=== PATIENT | male | born 1940 | race Caucasian/White ===

== ENCOUNTER 2019-06-10 16:12 | Inpatient (IN) | payer OTHER, MEDICARE ==
[~2019-06-10] VITALS: Ht 157.5 cm; Wt 54.0 kg
[2019-06-10 16:21] VITALS: BP 157/101
--- NOTE | 2019-06-10 16:31 | NUR ---
PT ASSISTED AND TRANSFERRED VIA WHEELCHAIR TO BED, WITH FAMILY MEMBERS
--- NOTE | 2019-06-10 16:49 | NUR ---
PT REFERRED BY URGENT CARE. C/O BILATERAL ANKLE SWELLING X5 MONTHS. PTS FAMILY STATES ANKLES HAVE PROGRESSIVELY GOTTEN MORE SWOLLEN. DIFFICULTY CHANGING POSITIONS D/T UPPER BACK PAIN. 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 PTS FAMILY REPORTS APPETITE CHANGE FOR THE PAST MONTH. RESPIRATIONS EVEN AND UNLABORED. LUNG FERNANDES CLEAR UPON AUSCULTATION. DENIES COUGH. LAYING IN BED CALM AND PLEASANT W/ FAMILY MEMBERS AT BEDSIDE. MEDHX: HTN, HIGH CHOLESTEROL
--- NOTE | 2019-06-10 17:34 | NUR ---
XRAY AT BEDSIDE
[2019-06-10 18:02] LABS: BASOPHILS % (AUTO) 0.2 % (0.0-2.0); EOSINOPHILS # (AUTO) 0.2 K/uL (0-0.4); EOSINOPHILS % (AUTO) 3.6 % (0.0-4.0); HEMATOCRIT 38.5 % (36-52); HEMOGLOBIN 12.6 g/dL (12.0-18.0); LYMPHOCYTES # (AUTO) 0.5 K/uL (2.0-11.5); MEAN CORPUSCULAR HEMOGLOBIN 24 pg (27-31); MEAN CORPUSCULAR HGB CONC 33 g/dL (33-37); MEAN CORPUSCULAR VOLUME 74.7 fL (80-94); MONOCYTES # (AUTO) 0.5 K/uL (0.8-1.0); MONOCYTES % (AUTO) 7.8 % (1.7-9.3); NEUTROPHILS # (AUTO) 5.6 K/uL (1.8-7.7); NEUTROPHILS % (AUTO) 81.4 % (42.2-75.2); PLATELET COUNT (AUTO) 233 K/uL (140-450); RED BLOOD CELL COUNT(AUTO) 5.15 MIL/uL (4.20-6.10); RED CELL DISTRIBUTION WIDTH 16.2 % (11.6-13.7); WHITE BLOOD COUNT (AUTO) 6.9 K/uL (4.8-10.8)
[2019-06-10] MEDS ORDERED: LIDOCAINE MPF 1% 5mL VIAL INJ ONE (18:15)
[2019-06-10] MEDS ORDERED: fentaNYL 0.05 MG/ML VIAL IVP ONE (18:15)
[2019-06-10] MEDS ORDERED: MIDAZOLAM 2 MG/2 ML VIAL IVP ONE (18:15)
[2019-06-10 18:23] LABS: ANION GAP 10.6 (8-16); CHLORIDE 105 mmol/L (98-107); CREATININE 0.8 mg/dL (0.7-1.3); GLUCOSE 83 mg/dL (74-106); POTASSIUM 3.6 mmol/L (3.5-5.1); SODIUM SERUM 142 mmol/L (136-145); UREA NITROGEN, BLOOD 19 mg/dL (7-18)
[2019-06-10 18:29] LABS: ALBUMIN 3.5 g/dL (3.4-5.0); ASPARTATE AMINOTRANSFERASE 15 U/L (15-37); TOTAL BILIRUBIN 1.7 mg/dL (0.0-1.0)
[2019-06-10 18:38] LABS: PROTHROMBIN TIME 10.3 secs (10.8-13.4)
--- NOTE | 2019-06-10 18:46 | NUR ---
PT LAYING HIGH OSBORN'S, SPO2 97% ON 2L NC WITH ETCO2, RR 22 EVEN AND UNLABORED. DENIES PAIN AT THIS TIME. ALL NEEDS MET.
--- NOTE | 2019-06-10 19:10 | NUR ---
DR FERRER AT BEDSIDE FOR L CHEST INSERTION. AIR AND 350ML SEROSANGUIONOUS DRAINAGE SUCTIONED. SUCCESSFUL PROCEDURE WITHOUT COMPLICATIONS, PT TOLERATED WELL, VS STABLE THROUGHOUT PROCEDURE.
[2019-06-10] MEDS ORDERED: ACETAMINOPHEN 325 MG TAB PO PRN (19:25)
[2019-06-10] MEDS ORDERED: ALBUTEROL 0.083% 2.5 MG/3 ML NEBU INH PRN (19:25)
[2019-06-10] MEDS ORDERED: ONDANSETRON 4 MG/2 ML VIAL IVP PRN (19:25)
--- NOTE | 2019-06-10 19:55 | NUR ---
ADMITTED 78 YEARS OLD MALE FROM ER VIA [employer]), SPANISH SPEAKING ONLY. CC: BACK PAIN. DX: LEFT PNEUMOTHORAX. LEFT CHEST TUBE. ER MD AT BEDSIDE ADJUSTED. REINFORCED BY ER NURSE AT BEDSIDE. 500ML OUTPUT NOTED UPON ARRIVAL. 20MMHG CONTINUOUS SUCTION ATTACHED. FAMILY AT BEDSIDE. JOURNEYMAN PLUMBER AT BEDSIDE FOR SKIN ASSESSMENT. CALL LIGHT WITHIN REACH.
--- NOTE | 2019-06-10 20:04 | NUR ---
Patient will be admitted to care of DR DRAKE. Admited to TELE. Will go to room 124B Belongings list completed. Report to CASI CONTRERAS. FAMILY AT BEDSIDE AT THIS TIME
--- NOTE | 2019-06-10 20:15 | NUR ---
[facility] SWAB COLLECTED AND SENT. SEE NURSING ADMISSION ASSESSMENT AND HISTORY COMPLETED AND INFO GATHERED WITH FAMILY MEMBER AT BEDSIDE. CALL LIGHT WITHIN REACH.
[2019-06-10] MEDS ORDERED: PNEUMOCOCCAL VACCINE 23 MCG/0.5 ML VIAL IMVAC PRN (22:00)
[2019-06-10] MEDS: MORPHINE SULFATE 4 MG/ML SYR IVP PRN (23:06)
[2019-06-11] VITALS (7 sets, daily range): BP systolic 148–161; BP diastolic 86–96
--- NOTE | 2019-06-11 00:29 | NUR ---
REPOSITIONED TO LEFT SIDE LYING, CHEST TUBE PATENT AND INTACT. VITAL SIGNS STABLE. CALL LIGHT WITHIN REACH. SLEEPING WELL.
--- NOTE | 2019-06-11 04:40 | NUR ---
VITAL SIGNS STABLE. NO COMPLAINS. PERICARE DONE. REPOSITIONED WITH CLINICAL DATA MANAGER. CHEST PATENT AND INTACT, DRAINING WELL.
--- NOTE | 2019-06-11 05:30 | NUR ---
SPOKE WITH DR. HERNANDEZ REGARDING THE SIGNED INFORMED CONSENT FOR CT CHEST WITH IV CONTRAST, NEEDS MD TO SIGNED PRIOR TO DOING THE TEST. OKAY TO WAIT TILL TODAY WHEN MD MADE ROUNDS TO SIGN CONSENT. INFORMED [employer] ENFORCEMENT OFFICER AND RADIOLOGY DEPARTMENT. LEFT NOTE FRONT OF CHART TO SIGN.
--- NOTE | 2019-06-11 05:38 | NUR ---
SCD BLE APPLIED.
[2019-06-11 06:21] LABS: ANION GAP 12.1 (8-16); CARBON DIOXIDE 28.7 mmol/L (21-32); CHLORIDE 106 mmol/L (98-107); CREATININE 0.8 mg/dL (0.7-1.3); GLUCOSE 81 mg/dL (74-106); POTASSIUM 3.8 mmol/L (3.5-5.1); SODIUM SERUM 143 mmol/L (136-145); UREA NITROGEN, BLOOD 18 mg/dL (7-18)
[2019-06-11 06:52] LABS: MAGNESIUM 1.7 mg/dL (1.8-2.4); PHOSPHORUS 3.7 mg/dL (2.5-4.9)
[2019-06-11 06:54] LABS: BASOPHILS % (AUTO) 0.6 % (0.0-2.0); EOSINOPHILS # (AUTO) 0.4 K/uL (0-0.4); EOSINOPHILS % (AUTO) 4.7 % (0.0-4.0); HEMATOCRIT 38.7 % (36-52); HEMOGLOBIN 12.7 g/dL (12.0-18.0); LYMPHOCYTES # (AUTO) 0.8 K/uL (2.0-11.5); LYMPHOCYTES % (AUTO) 9.3 % (20.5-51.1); MEAN CORPUSCULAR HEMOGLOBIN 25 pg (27-31); MEAN CORPUSCULAR HGB CONC 33 g/dL (33-37); MEAN CORPUSCULAR VOLUME 74.7 fL (80-94); MONOCYTES # (AUTO) 0.8 K/uL (0.8-1.0); MONOCYTES % (AUTO) 9.7 % (1.7-9.3); NEUTROPHILS # (AUTO) 6.3 K/uL (1.8-7.7); NEUTROPHILS % (AUTO) 75.7 % (42.2-75.2); PLATELET COUNT (AUTO) 216 K/uL (140-450); RED BLOOD CELL COUNT(AUTO) 5.18 MIL/uL (4.20-6.10); RED CELL DISTRIBUTION WIDTH 16.3 % (11.6-13.7); WHITE BLOOD COUNT (AUTO) 8.3 K/uL (4.8-10.8)
--- NOTE | 2019-06-11 07:19 | NUR ---
ENDORSED CARE AT BEDSIDE WITH SHAR CONTRERAS, PATIENT IN STABLE CONDITION.
--- NOTE | 2019-06-11 07:20 | NUR ---
Received bedside report from pm nurse Palacios. Pt resting in bed, awake, verbally responsive. Chest tube in place to left axillary with 20mmHg suction. Serosanguineous drainage present in collection chamber. field technical support consultant at bedside to take pt for CT. Chest tube clamped with gauze & forceps. Pt left unit via hospital bed.
--- NOTE | 2019-06-11 08:00 | NUR ---
Pt back in room 124A from CT. Chest tube in place with continuous suction @ 20cm H20. Pt awake, respirations even & nonlabored on O2 @ 2Lpm via n/c, no signs of distress. Right AC IV saline lock intact & asymptomatic. HOB @ 30. Call light within reach.
--- NOTE | 2019-06-11 08:25 | NUR ---
Spoke to Jason (son) on the phone for med reconciliation. Per Jason, he is at work at the moment but will come be later today to bring his meds to the hospital.
--- NOTE | 2019-06-11 09:06 | NUR ---
PATIENT HAS BEEN SCREENED AND CATEGORIZED MODERATE NUTRITION RISK. PATIENT WILL BE SEEN WITHIN 3-5 DAYS OF ADMISSION. 06/13/19 06/15/[address]
[2019-06-11] MEDS: MORPHINE SULFATE 4 MG/ML SYR IVP PRN (10:56)
--- NOTE | 2019-06-11 11:25 | NUR ---
Lining Baster Note: I called patient's son Jason Johnson to obtain information about patient for assessment. He stated he is currently working and prefers I call him tomorrow. He told me I can call him any time tomorrow.
--- NOTE | 2019-06-11 11:45 | NUR ---
Pt's granddaughter at bedside visiting pt. Pt resting in bed, awake, verbally responsive in Vietnames, no signs of distress, respirations even & nonlabored on O2 @ 2Lpm via n/c. Chest tube intact with continuous suction at 20cm H2O, small amount serosanguineous drainage present in tubing. Per granddaughter, pt does not take any medications at home.
--- NOTE | 2019-06-11 15:15 | NUR ---
Spoke to Dr Dai on the phone & read back magnesium level 1.7. Received order for MagOx, noted & carried out.
[2019-06-11] MEDS ORDERED: MAGNESIUM OXIDE 400 MG TAB PO SCH (16:00)
--- NOTE | 2019-06-11 17:45 | NUR ---
Pt in semi-fowlers in bed, awake, verbally responsive in Maori. Pt respirations even & nonlabored on O2 @ 2Lpm via n/c, FLACC 0. Left mid-axillary chest tube insertion site with clean & dry occlusive dressing. CT with continuous suction @ 20cm H2O, draining min serosanguineous fluid. Right AC IV saline lock intact & asymptomatic; line patent & flushed with 10ml NS. Call light within reach.
--- NOTE | 2019-06-11 19:05 | NUR ---
Bedside report given to pm nurse Fitz. Pt resting in bed, no signs of distress, chest tube in place with continuous suction.
--- NOTE | 2019-06-11 19:10 | NUR ---
RECEIVED PT ON BED, AAOX4, SYRIAC SPEAKING ONLY, VITAL SIGNS TAKEN, BP SLIGHTLY ELEVATED, ASYMPTOMATIC, NO SIGNS OF PAIN, SAT-98% ON O2 2L NC, WITH LEFT CHEST TUBE TO CONTINUOUS SUCTION AT 20CM, POSITIVE BUBBLE ON THE CHEST TUBE CHAMBER, DIMINISHED LUNG SOUNDS, SAFETY MEASURES IN PLACE, SIDE RAILS UP X2 AND BED ALARM ON, CALL LIGHT WITHIN REACH.
--- NOTE | 2019-06-11 20:15 | NUR ---
PT INCONTINENT OF URINE, CLEANED AND REPOSITIONED, OFFLOAD PRESSURE AREAS, ALL NEEDS ANTICIPATED.
--- NOTE | 2019-06-11 22:10 | NUR ---
PT SEEN STANDING UP ON SIDE OF THE BED, PT CONFUSED, UNABLE TO FOLLOW COMMAND, PUT PT ON A BED WITH BED ALARM, FREQUENT ROUNDING MADE.
[2019-06-12] VITALS: BP 159/94
--- NOTE | 2019-06-12 | NUR ---
PT AWAKE, VITAL SIGNS TAKEN, BP SLIGHTLY ELEVATED, IN PAIN, MEDICATED WITH MORPHINE, LEFT CHEST TUBE DRESSING DRY AND INTACT, CONTINUE TO MONITOR CLOSELY.
[2019-06-12 04:00] VITALS: BP 159/91
--- NOTE | 2019-06-12 04:00 | NUR ---
PT SLEEPING, EASILY AROUSABLE, VITAL SIGNS TAKEN, BP SLIGHTLY ELEVATED, ASYMPTOMATIC, NO SIGNS OF PAIN OR SOB, MONITORED CLOSELY.
--- NOTE | 2019-06-12 05:30 | NUR ---
30ML CRANBERRY COLORED CHEST TUBE DRAINAGE NOTED THE WHOLE SHIFT, CHEST TUBE ON CONTINUOUS SUCTION, SAFETY MEASURES IN PLACE, MONITORED CLOSELY.
--- NOTE | 2019-06-12 06:28 | NUR ---
DR FRANK HERE, MADE AWARE OF PT'S ELEVATED BP, STATED JUST TO MONITOR IT, WILL ENDORSE TO NEXT SHIFT.
[2019-06-12 06:35] LABS: ANION GAP 13.3 (8-16); CHLORIDE 103 mmol/L (98-107); CREATININE 0.8 mg/dL (0.7-1.3); GLUCOSE 102 mg/dL (74-106); POTASSIUM 3.3 mmol/L (3.5-5.1); SODIUM SERUM 142 mmol/L (136-145); UREA NITROGEN, BLOOD 15 mg/dL (7-18)
[2019-06-12 06:39] LABS: MAGNESIUM 1.6 mg/dL (1.8-2.4); PHOSPHORUS 3.2 mg/dL (2.5-4.9)
[2019-06-12 06:46] LABS: BASOPHILS % (AUTO) 0.4 % (0.0-2.0); EOSINOPHILS # (AUTO) 0.4 K/uL (0-0.4); EOSINOPHILS % (AUTO) 6.4 % (0.0-4.0); HEMATOCRIT 35.4 % (36-52); HEMOGLOBIN 11.7 g/dL (12.0-18.0); LYMPHOCYTES # (AUTO) 0.5 K/uL (2.0-11.5); LYMPHOCYTES % (AUTO) 6.8 % (20.5-51.1); MEAN CORPUSCULAR HEMOGLOBIN 25 pg (27-31); MEAN CORPUSCULAR HGB CONC 33 g/dL (33-37); MEAN CORPUSCULAR VOLUME 74.4 fL (80-94); MONOCYTES # (AUTO) 0.7 K/uL (0.8-1.0); MONOCYTES % (AUTO) 10.5 % (1.7-9.3); NEUTROPHILS # (AUTO) 5.1 K/uL (1.8-7.7); NEUTROPHILS % (AUTO) 75.9 % (42.2-75.2); PLATELET COUNT (AUTO) 205 K/uL (140-450); RED BLOOD CELL COUNT(AUTO) 4.75 MIL/uL (4.20-6.10); RED CELL DISTRIBUTION WIDTH 16.2 % (11.6-13.7); WHITE BLOOD COUNT (AUTO) 6.8 K/uL (4.8-10.8)
--- NOTE | 2019-06-12 07:10 | NUR ---
RECEIVED PATIENT FROM NIGHT NURSE. PT ON BED IN LOW POSITION WITH NO SIGNS OF DISTRESS. AAOX4. ON O2 2L NC, WITH LEFT CHEST TUBE TO CONTINUOUS SUCTION AT 20CM, POSITIVE BUBBLE ON THE CHEST TUBE CHAMBER. IV IN PLACE R AC 20G. SAFETY MEASURES IN PLACE, SIDE RAILS UP X2 AND BED ALARM ON, CALL LIGHT WITHIN REACH. WILL CONTINUE TO MONITOR.
--- NOTE | 2019-06-12 07:15 | NUR ---
PT AWAKE, NO SIGNS OF DISTRESS, CHEST TUBE TO CONTINUOUS SUCTION ON-GOING, BEDSIDE REPORT GIVEN TO BEN MARTINEZ FOR CONTINUITY OF CARE.
[2019-06-12 08:00] VITALS: BP 144/81
--- NOTE | 2019-06-12 08:30 | NUR ---
VITAL SIGNS TAKEN. PATIENT EATING BREAKFAST. SAFETY MEASURES IN PLACE. CALL LIGHT WITHIN REACH. WILL CONTINUE TO MONITOR.
--- NOTE | 2019-06-12 11:39 | NUR ---
VITAL SIGNS TAKEN. PATIENT IS IN BED. NO DISTRESS OR PAIN NOTED. SAFETY MEASURES IN PLACE. WILL CONTINUE TO MONITOR.
[2019-06-12 12:00] VITALS: BP 143/93
--- NOTE | 2019-06-12 14:25 | NUR ---
Nail Galvanizer Note: I called patient's son Jason Johnson , no answer, left message.
[2019-06-12] MEDS ORDERED: MAGNESIUM OXIDE 400 MG TAB PO SCH (15:00)
[2019-06-12] MEDS ORDERED: POTASSIUM CHLORIDE 10 MEQ TABER PO SCH (15:00)
[2019-06-12] MEDS: MORPHINE SULFATE 4 MG/ML SYR IVP PRN ×2 (15:04)
--- NOTE | 2019-06-12 15:08 | NUR ---
MEDICATIONS ADMINISTERED PER ORDER. PATIENT IN NO DISTRESS RESTING IN BED. SAFETY MEASURES IN PLACE. WILL CONTINUE TO MONITOR.
[2019-06-12 16:00] VITALS: BP 161/104
--- NOTE | 2019-06-12 19:15 | NUR ---
BEDSIDE REPORT GIVEN TO NIGHT NURSE FOR CONTINUITY OF CARE. PT IN NO DISTRESS.
--- NOTE | 2019-06-12 19:20 | NUR ---
RECEIVED BEDSIDE REPORT FROM AM SHIFT RN, FOR PT'S CONTINUITY OF CARE. PT IS ALERT, AWAKE, ORIENTED X 2, ON CARPET CLEANER, HAS RIGHT AC 20G, SALINE LOCK, SPEAKS ONLY CZECH, LEFT CHEST TUBE DONE IN THIS HOSPITAL, PT TRIES TO GET OUT OF BED, PER AM SHIFT, HE TRIES TO GET OUT WHEN SOILED. BED IS ON LOW POSITION, SIDE RAILS ARE UP, AND CALL LIGHT IS WITHIN REACH. WILL MONITOR PT THROUGHOUT SHIFT.
[2019-06-12 20:00] VITALS: BP 152/94
[2019-06-13] VITALS: BP 149/81
--- NOTE | 2019-06-13 | NUR ---
VS CHECKED AND CHARTED. PT SHOWS NO SIGNS OF DISTRESS. WILL CONTINUE TO MONITOR PT.
--- NOTE | 2019-06-13 02:30 | NUR ---
PT LYING DOWN ASLEEP, WITH NO SIGNS OF DISTRESS. WILL CONTINUE TO MONITOR.
[2019-06-13 04:00] VITALS: BP 142/88
--- NOTE | 2019-06-13 04:15 | NUR ---
VS CHECKED AND CHARTED. PT WAS ASLEEP, WOKE UP WITH NO SIGNS OF DISTRESS. REPOSITIONED PT. PT TOLERATED ACTIVITY WELL. WILL CONTINUE TO MONITOR PT.
--- NOTE | 2019-06-13 06:15 | NUR ---
PT LYING DOWN ASLEEP, WITH NO SIGNS OF DISTRESS. PER NETWORK AND THREAT SUPPORT SPECIALIST, LINENS WERE CHANGED, PT IS CLEAN. WILL ENDORSE TO AM SHIFT RN FOR PT'S CONTINUITY OF CARE.
[2019-06-13 06:41] LABS: ANION GAP 10.7 (8-16); CARBON DIOXIDE 30.8 mmol/L (21-32); CHLORIDE 106 mmol/L (98-107); CREATININE 0.8 mg/dL (0.7-1.3); GLUCOSE 102 mg/dL (74-106); POTASSIUM 4.5 mmol/L (3.5-5.1); SODIUM SERUM 143 mmol/L (136-145); UREA NITROGEN, BLOOD 14 mg/dL (7-18)
[2019-06-13 06:46] LABS: MAGNESIUM 1.8 mg/dL (1.8-2.4); PHOSPHORUS 2.8 mg/dL (2.5-4.9)
[2019-06-13 07:02] LABS: BASOPHILS % (AUTO) 0.4 % (0.0-2.0); EOSINOPHILS # (AUTO) 0.3 K/uL (0-0.4); EOSINOPHILS % (AUTO) 3.7 % (0.0-4.0); HEMATOCRIT 38.3 % (36-52); HEMOGLOBIN 12.5 g/dL (12.0-18.0); LYMPHOCYTES # (AUTO) 0.7 K/uL (2.0-11.5); LYMPHOCYTES % (AUTO) 7.8 % (20.5-51.1); MEAN CORPUSCULAR HEMOGLOBIN 24 pg (27-31); MEAN CORPUSCULAR HGB CONC 33 g/dL (33-37); MEAN CORPUSCULAR VOLUME 74.9 fL (80-94); MONOCYTES # (AUTO) 0.9 K/uL (0.8-1.0); MONOCYTES % (AUTO) 10.9 % (1.7-9.3); NEUTROPHILS # (AUTO) 6.6 K/uL (1.8-7.7); NEUTROPHILS % (AUTO) 77.2 % (42.2-75.2); PLATELET COUNT (AUTO) 218 K/uL (140-450); RED BLOOD CELL COUNT(AUTO) 5.12 MIL/uL (4.20-6.10); RED CELL DISTRIBUTION WIDTH 16.1 % (11.6-13.7); WHITE BLOOD COUNT (AUTO) 8.6 K/uL (4.8-10.8)
--- NOTE | 2019-06-13 07:28 | NUR ---
BEDSIDE REPORT RECEIVED FROM FLATBED PRESS OPERATOR NURSE, PT RESTING QUIETLY, RESP EVEN UNLABORED, SKIN WARM DRY COLOR WNL, CHEST TUBE IN PLACE, PLAN OF CARE REVIEWED, PT DENIES PAIN OR DISCOMFORT, ALL SAFETY MEASURES IN PLACE, WILL CONTINUE TO MONITOR.
[2019-06-13 08:53] VITALS: BP 132/76
--- NOTE | 2019-06-13 09:30 | NUR ---
CHEST TUBE CLAMPED AT THIS TIME. SMALL AMOUNT OF SEROSANGUINOUS DRAINAGE NOTED IN TUBE
--- NOTE | 2019-06-13 10:56 | NUR ---
PATIENT REFUSED PT. PT WAS COMBATIVE AND CONFUSED .WILL CONTINUE TO MONITOR. CHEST TUBE CLAMPED PER ORDER. RESPIRATION PATTERN NORMAL.
[2019-06-13 12:00] VITALS: BP 138/84
--- NOTE | 2019-06-13 12:05 | NUR ---
PT EATING LUNCH WITH ASSIST, PT JERRY REGULAR DIET WELL, SWALLOWS WELL, NO DIFFICULTY NOTED.
--- NOTE | 2019-06-13 13:59 | NUR ---
DR MELENDEZ WAS AT THE BEDSIDE.
--- NOTE | 2019-06-13 14:30 | NUR ---
PERICARE DONE, BED BATH GIVEN,
--- NOTE | 2019-06-13 14:58 | NUR ---
06/13/19 RD INITIAL ASSESSMENT COMPLETED PLEASE REFER TO NUTRITION ASSESSMENT UNDER CARE ACTIVITY FOR ESTIMATED NUTRITIONAL NEEDS. 1. CONTINUE REGULAR DIET TOLERATED 2. HEALTH SHAKES TID WILL BE PROVIDED 3. CONTINUE FEEDING ASSISTANCE WITH MEALS 4. RD TO FOLLOW-UP 3-5 DAYS, MODERATE RISK CAITIE PACHECO RD
[2019-06-13 16:00] VITALS: BP 148/80
--- NOTE | 2019-06-13 17:20 | NUR ---
PT LYING DOWN ASLEEP, NO SIGNS OF DISTRESS NOTED. PER RING BARKER OPERATOR, LINENS WERE CHANGED, PT IS CLEAN.
--- NOTE | 2019-06-13 18:00 | NUR ---
CXR DONE AT BEDSIDE
--- NOTE | 2019-06-13 18:42 | NUR ---
PT'S SON AND FAMILY AT BESIDE, FAMILY FEEDING HIM DINNER
--- NOTE | 2019-06-13 18:50 | NUR ---
DR AL COHN, WILL REPORT CXR RESULT WHEN HE CALLS BACK.
--- NOTE | 2019-06-13 19:15 | NUR ---
REPORT GIVEN TO FILLER SHREDDER HELPER NURSE AT BEDSIDE.
--- NOTE | 2019-06-13 19:16 | NUR ---
RECEIVED BEDSIDE REPORT FROM DAY SHIFT NURSE BOLA RN, PT STABLE, NO DISTRESS NOTED, IV TO L AC 20G PATENT,INTACT, SL PT ON 2LPM O2 VIA NC, NO SOB NOTED, DRESSINGS INTACT, L CHEST TUBE IS CLAMPED PER MD ORDER, INITIAL ASSESSMENT DONE, ALL SAFETY PRECAUTION MET, CALL LIGHT WITHIN REACH, WILL CONTINUE TO MONITOR.
[2019-06-13 20:00] VITALS: BP 137/87
--- NOTE | 2019-06-13 20:44 | NUR ---
TALKED TO DR. MELENDEZ REGARDING RESULT OF CHEST XRAY, PER DR. MELENDEZ TO LEAVE CHEST TUBE CLAMP. NO OTHER CHANGE OF ORDERS.
[2019-06-14] VITALS: BP 128/87
--- NOTE | 2019-06-14 00:12 | NUR ---
CHECKED ON PT, PT SLEEPING, V/S TAKEN, WNL, CALL LIGHT WITHIN REACH, WILL CONTINUE TO MONITOR.
--- NOTE | 2019-06-14 02:23 | NUR ---
CHECKED ON PT, PT SLEEPING, NO DISTRESS NOTED, CALL LIGHT WITHIN REACH, WILL CONTINUE TO MONITOR.
[2019-06-14 04:00] VITALS: BP 135/83
--- NOTE | 2019-06-14 04:23 | NUR ---
CHECKED ON PT, PT SLEEPING, V/S TAKEN, WNL, CALL LIGHT WITHIN REACH, WILL CONTINUE TO MONITOR.
[2019-06-14] MEDS ORDERED: DOCUSATE SODIUM 100 MG GELCAP PO PRN (06:40)
[2019-06-14] MEDS: HYDROcodone/APAP 5/325 MG 1 TAB TAB PO PRN ×2 (06:50→12:23)
[2019-06-14 06:51] LABS: BASOPHILS % (AUTO) 0.2 % (0.0-2.0); EOSINOPHILS # (AUTO) 0.3 K/uL (0-0.4); EOSINOPHILS % (AUTO) 2.1 % (0.0-4.0); HEMATOCRIT 40.7 % (36-52); HEMOGLOBIN 12.8 g/dL (12.0-18.0); LYMPHOCYTES # (AUTO) 0.7 K/uL (2.0-11.5); LYMPHOCYTES % (AUTO) 5.8 % (20.5-51.1); MEAN CORPUSCULAR HEMOGLOBIN 24 pg (27-31); MEAN CORPUSCULAR HGB CONC 32 g/dL (33-37); MEAN CORPUSCULAR VOLUME 76.4 fL (80-94); MONOCYTES # (AUTO) 1.4 K/uL (0.8-1.0); NEUTROPHILS # (AUTO) 10.3 K/uL (1.8-7.7); NEUTROPHILS % (AUTO) 80.9 % (42.2-75.2); PLATELET COUNT (AUTO) 232 K/uL (140-450); RED BLOOD CELL COUNT(AUTO) 5.32 MIL/uL (4.20-6.10); RED CELL DISTRIBUTION WIDTH 16.6 % (11.6-13.7); WHITE BLOOD COUNT (AUTO) 12.7 K/uL (4.8-10.8)
[2019-06-14 07:02] LABS: CARBON DIOXIDE 29.9 mmol/L (21-32); CHLORIDE 103 mmol/L (98-107); CREATININE 0.9 mg/dL (0.7-1.3); GLUCOSE 103 mg/dL (74-106); POTASSIUM 3.9 mmol/L (3.5-5.1); SODIUM SERUM 140 mmol/L (136-145); UREA NITROGEN, BLOOD 19 mg/dL (7-18)
--- NOTE | 2019-06-14 07:16 | NUR ---
ENDORSED PT TO DAY SHIFT NURSE BOLA RN, PT STABLE, NO DISTRESS NOTED, CALL LIGHT WITHIN REACH.
--- NOTE | 2019-06-14 07:20 | NUR ---
REPORT RECEIVED FROM JOY LOADER NURSE, PT AWAKE RESTING QUIETLY, RESP EVEN UNLABORED, SKIN WARM DRY COLOR WNL, PT DENIES PAIN, LEFT CHEST TUBE CLAMPED, POC REVIEWED, NO IMMEDIATE NEEDS AT THIS TIME, ALL SAFETY MEASURES IN PLACE, WILL CONTINUE TO MONITOR.
[2019-06-14 07:22] LABS: MAGNESIUM 1.9 mg/dL (1.8-2.4); PHOSPHORUS 3.5 mg/dL (2.5-4.9)
[2019-06-14 08:00] VITALS: BP 100/71
--- NOTE | 2019-06-14 09:50 | NUR ---
PHYSICAL THERAPY AT BEDSIDE, PT UP OUT OF BED STANDING WITH ASSIST AND TAKES SIDE STEPS.
[2019-06-14 12:00] VITALS: BP 115/77
--- NOTE | 2019-06-14 12:20 | NUR ---
PT SLIGHTLY TACHYCARDIC, SITTING UP WITH EYES CLOSED, WITH GRIMACE, WHEN ASKED IF HE IS IN PAIN, HE NODS HIS HEAD SLIGHTLY, WILL GIVE NORCO.
--- NOTE | 2019-06-14 13:30 | NUR ---
PT SLEEPING COMFORTABLY, APPEARS IN NO PAIN AT THIS TIME.
--- NOTE | 2019-06-14 14:53 | NUR ---
Malt Specifications Control Assistant Note: I called patient's son Jason Johnson , no answer, left message.
--- NOTE | 2019-06-14 15:45 | NUR ---
VITALS STABLE, CHEST TUBE CLAMPED IN PLACE, RESP EVEN UNLABORED ON ROOM AIR, DENIES PAIN, WILL CONTINUE TO MONITOR.
[2019-06-14 16:00] VITALS: BP 108/70
--- NOTE | 2019-06-14 17:30 | NUR ---
BLADDER SCAN DONE, 140ML IN BLADDER.
[2019-06-14] MEDS ORDERED: NACL 0.9% 250 ML IV SCH (17:52)
--- NOTE | 2019-06-14 17:55 | NUR ---
DR FRANK MADE AWARE OF DECREASED URINE OUTPUT TODAY, AND DECREASED PO INTAKE, ORDER RECEIVED FOR BOLUS 250ML NS AND BLADDER SCAN.
--- NOTE | 2019-06-14 18:27 | NUR ---
PT JERRY 50% DINNER WITH ASSIST, PT JERRY WELL
--- NOTE | 2019-06-14 19:15 | NUR ---
REPORT GIVEN TO SALES RECRUITING COORDINATOR NURSE, PT IN STABLE CONDITION.
[2019-06-14 20:00] VITALS: BP 130/70
--- NOTE | 2019-06-14 20:21 | NUR ---
ENDORSED PATIENT TO PHOTOGRAMMETRIC TECHNICIAN NURSE FAHAD. PATIENT IN BED, NO BLEEDING AT LEFT CHEST TUBE SIDE, DRESSING IN PLACE.
--- NOTE | 2019-06-14 20:21 | NUR ---
RECIEVED PT.AAOX1 TO 2 ,NID , JUST CHEST TUBE REMVED BY DR. MELENDEZ - O2 SAT 93% , NO SIGNS OF DISTRESS NOTED AT THIS TIME , ON HL -INTACT AND PATENT. WITH DRESSING ON LEFT LAT. CHEST - NO ACTIVE BLEEDING NOTED.PLAN OF CARE DISCUSSED BUT POOR UNDERSTANDING DUE TO MENTAL; STATUS AND LANGUAGE BARRIER , ON SAFETY / FALL PRECAUTION PROTOCOL -BED ALARM ON , CALL LIGHT WITHIN REACH , WILL CONTINUE TO MONITOR.
--- NOTE | 2019-06-14 22:40 | NUR ---
INFORM SUPERVISOR PHOSPHORIC ACID DOCTOR -( DR HIGHTOWER )BEC. PT HAS FEVER 100.9 ORALLY - SUPPOSSED TO BE DR GIBSON ORDERED TYLENOL STAT ON THAT TIME - BUT I FORM HIM I JUST GAVE TYLENOL STANDING ORDERED FOR PAIN . NO FURTHER ORDERS MADE JUST MONITOR THE TEMP.
[2019-06-15] VITALS: BP 120/70
--- NOTE | 2019-06-15 | NUR ---
MADE ROUNDS , NO SIGNS OF DISTRESS NOTED AT THIS TIME .
--- NOTE | 2019-06-15 00:56 | NUR ---
RECEIVED ENDORSEMENT FROM BEN LOWE, PT STABLE, NO DISTRESS NOTED, SLEEPING, IV TO R AC 20G PATENT INTACT, PT ON 2LPM O2 VIA NC, RESTING, CALL LIGHT WITHIN REACH, WILL CONTINUE TO MONITOR.
--- NOTE | 2019-06-15 00:56 | NUR ---
ENDORSED TO MAYCOL QUINTERO FOR CONTINUE OF CARE , WITH STABLE CONDITION.
--- NOTE | 2019-06-15 03:55 | NUR ---
CHECKED ON PT, V/S TAKEN, WNL, CALL LIGHT WITHIN REACH, WILL CONTINUE TO MONITOR.
[2019-06-15 04:00] VITALS: BP 111/67
--- NOTE | 2019-06-15 07:00 | NUR ---
RECEIVED REPORT FROM UNDERWATER ROBOTICIST NURSE. PATIENT IS SLEEPING IN BED. PT ON ROOM AIR. IV TO RIGHT AC 20G, A&O X1. FULL CODE, NKA. WILL CONTINUE TO MONITOR
--- NOTE | 2019-06-15 07:20 | NUR ---
ENDORSED PT TO DAY SHIFT NURSE ISIDORO RN, PT STABLE, NO DISTRESS NOTED. CALL LIGHT WITHIN REACH.
[2019-06-15 08:00] VITALS: BP 106/69
--- NOTE | 2019-06-15 11:31 | NUR ---
PATIENT IS SLEEPING IN BED. VISIBLE CHEST RISE AND FALL. HOB AT 30 DEGREES. NO COMPLAINTS AT THIS TIME.
[2019-06-15 12:00] VITALS: BP 114/72
--- NOTE | 2019-06-15 13:00 | NUR ---
PATIENT IS RESTING QUIETLY IN BED. FAMILY MEMBERS AT BEDSIDE.
[2019-06-15 16:00] VITALS: BP 102/72
--- NOTE | 2019-06-15 16:00 | NUR ---
SPOKE TO DR DRAKE REGARDING DISCHARGE PLANNING. PER MD, DISCHARGE ORDER WILL BE PUT IN AND CASE MANAGEMENT CONSULT FOR SNF PLACEMENT FOR PT. WILL ENDORSE TO VISUAL AND STOCK ASSOCIATE NURSE.
[2019-06-15] MEDS ORDERED: PRON INH (16:29)
[2019-06-15] MEDS ORDERED: ACET-1182 PO (16:29)
[2019-06-15] MEDS ORDERED: ACET-9525 PO (16:29)
[2019-06-15] MEDS ORDERED: DOCU-299 PO (16:29)
--- NOTE | 2019-06-15 19:30 | NUR ---
RECEIVED BEDSIDE REPORT FROM DAY SHIFT RN ROWDY, PATIENT IN BED, LITHUANIAN SPEAKING, AAOX 1 TO PERSON. ABLE TO NOD HEAD IF IN PAIN OR WANTS FOOD. V/S STABLE, FLACC-0, LUNG SOUNDS CLEAR, SYMMETRICAL CHEST RISE AND FALL, NOTED LEFT S/P CHEST TUBE REMOVAL, DRESSING INTACT, NO SIGNS OF BLEEDING. S1 AND D2 HEARD, PULSES PALPATED, CAP REFILL LESS THAN 3 SECONDS, SKIN IS WARM, DRY AND INTACT. ABDOMEN SOFT AND NON-DISTENDED. LEFT FA SL DRESSING INTACT. SIDE RAILS UP, CALL LIGHT WITHIN REACH, SCD IN PLACE. WILL CONTINUE TO FREQUENTLY MONITOR.
[2019-06-15 20:00] VITALS: BP 109/61
--- NOTE | 2019-06-15 20:30 | NUR ---
OFFERED PATIENT JUICE AND APPLESAUCE PATIENT DID NOT WANT, PATIENT DENIES PAIN, WILL CONTINUE TO FREQUENCY MONITOR
--- NOTE | 2019-06-15 23:00 | NUR ---
PATIENT RESTING IN BED, NO SIGNS OF PAIN WILL CONTINUE TO MONITOR
[2019-06-16] VITALS: BP 103/70
--- NOTE | 2019-06-16 01:45 | NUR ---
PATIENT AWAKE IN BED OFFERED JUICE PATIENT REFUSED. REPOSITIONED PILLOW FOR COMFORT, WILL CONTINUE TO MONITOR.
--- NOTE | 2019-06-16 03:50 | NUR ---
V/S STABLE, BED IN LOWEST POSITION, WILL CONTINUE TO MONITOR
[2019-06-16 04:00] VITALS: BP 121/71
--- NOTE | 2019-06-16 07:17 | NUR ---
WILL ENDORSED PATIENT TO CHARGE NURSE FOR CONTINUITY OF CARE. PATIENT SLEEPING IN BED, NO SIGNS OF SOB AT THIS TIME.
[2019-06-16 08:00] VITALS: BP 107/70
--- NOTE | 2019-06-16 08:00 | NUR ---
RECEIVED REPORT FROM BEN DENIS. PATIENT ALERT AWAKE ORIENTED X1 TO NAME,NOT IN ANY DISTRESS NOTED. HEPLOCK DRY AND INTACT. ON MONITOR SHOWS SR, NO ECTOPY NOTED. CALL LIGHT WITHIN REACH. INITIAL ASSESSMENT INITIATED. NEEDS ATTENDED. WILL CONTINUE TO MONITOR.
[2019-06-16 08:27] LABS: BASOPHILS % (AUTO) 0.4 % (0.0-2.0); EOSINOPHILS # (AUTO) 0.3 K/uL (0-0.4); EOSINOPHILS % (AUTO) 4.1 % (0.0-4.0); HEMATOCRIT 35.9 % (36-52); HEMOGLOBIN 11.6 g/dL (12.0-18.0); LYMPHOCYTES # (AUTO) 0.6 K/uL (2.0-11.5); MEAN CORPUSCULAR HEMOGLOBIN 25 pg (27-31); MEAN CORPUSCULAR HGB CONC 32 g/dL (33-37); MEAN CORPUSCULAR VOLUME 75.9 fL (80-94); MONOCYTES # (AUTO) 0.9 K/uL (0.8-1.0); MONOCYTES % (AUTO) 11.1 % (1.7-9.3); NEUTROPHILS # (AUTO) 6.5 K/uL (1.8-7.7); NEUTROPHILS % (AUTO) 77.4 % (42.2-75.2); PLATELET COUNT (AUTO) 281 K/uL (140-450); RED BLOOD CELL COUNT(AUTO) 4.73 MIL/uL (4.20-6.10); RED CELL DISTRIBUTION WIDTH 16.1 % (11.6-13.7); WHITE BLOOD COUNT (AUTO) 8.4 K/uL (4.8-10.8)
[2019-06-16 08:51] LABS: PHOSPHORUS 3.3 mg/dL (2.5-4.9)
--- NOTE | 2019-06-16 10:00 | NUR ---
FOLLOW UP ORDER REGARDING SNF PLACEMENT FOR PT. CALLED IE AND SPOKE TO MARGIE SUPERVISOR RECEIVING AND PROCESSING. FAXED TO HER THE FACE SHEET AND ORDER. SHE SAID SHE WILL CALL WHEN SHE RECEIVED THE ORDER.
--- NOTE | 2019-06-16 10:30 | NUR ---
MARGIE CALLED BACK AND SHE SAID TO FAX ALL INFO TO [facility]. [place] [facility] [place]
[2019-06-16 10:59] LABS: ANION GAP 11.5 (8-16); CARBON DIOXIDE 26.6 mmol/L (21-32); CHLORIDE 105 mmol/L (98-107); CREATININE 0.9 mg/dL (0.7-1.3); GLUCOSE 87 mg/dL (74-106); POTASSIUM 4.1 mmol/L (3.5-5.1); SODIUM SERUM 139 mmol/L (136-145); UREA NITROGEN, BLOOD 28 mg/dL (7-18)
--- NOTE | 2019-06-16 11:00 | NUR ---
SON HERE TO VISIT PATIENT AND INFORMED HIM THE PLAN FOR TRANSFERRING TO SNF FOR PT. [facility] THE [facility]IENT [facility] A RESIDENT THERE. CALLED [facility], NO BED AVAILABLE. NOTIFIED THE SON AND HE SAID IT FINE. WAITING FOR [facility]IVE [place] BED. WILL CONTINUE TO MONITOR.
[2019-06-16 12:00] VITALS: BP 110/63
--- NOTE | 2019-06-16 13:00 | NUR ---
FAXED INQUIRY TO [facility] AND TO [facility] ATTENTION TO ARABE[facility]A .
--- NOTE | 2019-06-16 14:36 | NUR ---
MARGIE LANDIS FROM [facility] CALLED AND PATIENT IS ACCEPTED AT [id number] AUTH# [id number] FOR [facility], #[id number] AUTH# FOR [facility].
--- NOTE | 2019-06-16 14:45 | NUR ---
NOTIFIED SON REGARDING TRANSFER.
--- NOTE | 2019-06-16 15:45 | NUR ---
NOTIFIED MARGIE LANDIS OF [facility] THAT SON PREFERRED [facility] AND SPOKE TO ARABELLA, PATIENT HAS ABED RM 6-B.
[2019-06-16 16:00] VITALS: BP 156/95
--- NOTE | 2019-06-16 16:13 | NUR ---
REPORT GIVEN TO TREY ADAMS AT [facility]. USER EXPERIENCE ANALYST TIME OF [facility] SET UP, ETA 8:30 PM. NOTIFIED SON CAN REGARDING CHANGE OF SNF.
--- NOTE | 2019-06-16 16:14 | NUR ---
NOTIFIED [facility] THAT PATIENT WILL NO LONGER GOING THERE AND MADE AWARE.
--- NOTE | 2019-06-16 18:40 | NUR ---
PATIENT RESTING IN BED, NO C/O PAIN. WAITING FOR IMPORT COORDINATOR BY [facility]. WILL ENDORSE TO THE NEXT SHIFT FOR CONTINUITY OF CARE,
== END 2019-06-16 21:45 | DRG 143 ==
LOC: MED 16:12 → MTU 19:23
PROVIDERS: ADMIT Internal Medicine; ATTEND Internal Medicine
PROC: 0W9B00Z Drainage of Left Pleural Cavity with Drainage Device, Open Approach (ICD-10-PCS; principal; 2019-06-10)
DX: J93.83 Other pneumothorax (principal); J96.01 Acute respiratory failure with hypoxia; E78.5 Hyperlipidemia, unspecified; I10 Essential (primary) hypertension; J98.11 Atelectasis; F17.200 Nicotine dependence, unspecified, uncomplicated; E78.00 Pure hypercholesterolemia, unspecified
CPT/HCPCS: 32551; 36415; 36600; 71045; 71260; 80048; 80053; 82803; 83605; 83690; 83735; 83880; 84100; 84484; 85025; 85610; 85730; 87040; 87081; 93005; 97110; 97116; 97161-GP; 97530; 99291; J2001; J2250; J2270; J3010; J7030; Q0092; Q9967